=== PATIENT | female | born 1945 | race Caucasian/White ===

== ENCOUNTER → 2016-05-07 | Outpatient (CLI) | payer MEDICARE, BC ==
--- NOTE | 2016-05-08 16:47 | RADRPT ---
PROCEDURE: XR pelvis/right hip. CLINICAL INDICATION: Hip pain TECHNIQUE: AP pelvis/AP and lateral right hip views performed COMPARISON: No prior studies are available for comparison. FINDINGS: There is moderate to severe right hip osteoarthrosis and moderate left hip osteoarthrosis. This is a ssociated with joint space narrowing, subchondral sclerosis , subchondral cyst formation and osteoph ytosis. There is normal mineralization. No fractures or osseous lesions are identified. The soft tissues are unremarkable. IMPRESSION: Moderate to severe right hip osteoarthrosis Moderate left hip osteoarthrosis. RPTAT: [facility] .Tiburcio Townsend MD, Date Time Electronically viewed and signed by .Tiburcio Townsend MD, on 05/08/2016 16:47 .B/
== END | disposition home or self-care (01) ==
LOC: HKI 15:09
PROVIDERS: ATTEND Orthopaedic Surgery
DX: M16.11 Unilateral primary osteoarthritis, right hip (principal)
CPT/HCPCS: 73502; G0463